=== PATIENT | female | born 1995 | race Caucasian/White ===

== ENCOUNTER 2022-03-26 13:18 | Emergency (ER) | payer OTHER, SELFPAY ==
[2022-03-26 13:19] VITALS: BP 124/78; PULSE 63; RESP 14; TEMP 36.4; O2SAT 100; BMI 24.1
--- NOTE | 2022-03-26 14:13 | EKG12_ITS ---
Test Reason : SYNCOPE Blood Pressure : / mmHG Vent. Rate : 059 BPM Atrial Rate : 059 BPM P-R Int : 158 ms QRS Dur : 084 ms QT Int : 408 ms P-R-T Axes : 036 038 037 degrees QTc Int : 403 ms Sinus bradycardia Otherwise normal ECG Confirmed by LEIF MARTÍNEZ, HANNA ([id number]), assignment desk editor NERY TILLMAN ([id number]) on 03/27/2022 11:21:03 A M Referred By: TEMI Confirmed By:FARHANA YADAV MD
--- NOTE | 2022-03-26 14:32 | EDS_ITS ---
HPI History of Present Illness Chief Complaint: Syncope Informant: patient Narrative Narrative: 14-week gestation. Presents by EMS from home for syncopal episode occurring while at [employer]. Patient did not eat much today states she is really hungry try to pay for food she got sweaty lightheaded, next thing she knows she was on the ground. She has a mild headache. No neck or back pain. Denies abdominal pain. Denies nausea or vomiting. Denies urinary symptoms. No prodromal chest pains or shortness of breath. No previous similar incidents in the past. No past medical history. Denies alcohol, tobacco, illicit drug use. Currently only on vitamins. Blood glucose 93 with per EMS. Prior similar symptoms: No PFSH PFSH Medical History no medical history Allergy/AdvReac Type Severity Reaction Status Date / Time No Known Allergies Allergy Verified 03/26/22 13:19 Social History Smoking Status: Never smoker ROS ROS ED Constitutional Constitutional ED: Denies chills, fever(s) or sweats Eyes Eyes: Denies change in vision ENT ENT ED: Denies dysphagia or sore throat Cardiovascular Cardiovascular: Denies chest pain, leg edema, palpitations or racing heartbeat Respiratory/Chest Respiratory/Chest: Denies cough, dyspnea or dyspnea on exertion Gastrointestinal Gastrointestinal: Denies abdominal pain, diarrhea, nausea or vomiting Genitourinary Genitourinary ED: Denies dysuria, hematuria or urinary frequency Musculoskeletal Musculoskeletal: Denies back pain, extremity pain or neck pain Integumentary Denies rash or wounds Neurologic Neurologic: Reports headache(s); Denies paresthesias or weakness EXAM Physical Exam Const Vital Signs: 03/26/22 13:19 03/26/22 13:22 03/26/22 15:32 Temperature 97.5 F L Temperature Source Temporal Pulse Rate 63 Respiratory Rate 14 Respiratory Effort Normal Non-Labored Blood Pressure 124/78 H 98/61 Blood Pressure Mean 93 73 Pulse Ox 100 Oxygen Delivery Method Room Air 03/26/22 16:06 Temperature Temperature Source Pulse Rate 78 Respiratory Rate 16 Respiratory Effort Blood Pressure 103/71 Blood Pressure Mean Pulse Ox 98 Oxygen Delivery Method Positive well nourished and well developed General Appearance ED: well developed and NAD HEENT Reports moist mucous membranes normocephalic and atraumatic Eyes PERRL, EOMs intact bilaterally and conjunctivae normal General Eye ED: Yes normal appearance of both eyes Neck no lymphadenopathy and supple General: Negative for tenderness Chest Wall Chest: Negative for tenderness Resp normal respiratory effort and normal air movement Effort and Inspection: symmetric chest movement; Negative for respiratory distress Cardio regular rate, regular rhythm and no murmurs Peripheral Pulses: pulses 2+ throughout GI normal to inspection, nondistended, normoactive bowel sounds and non-tender Palpation: Negative for guarding or rebound tenderness present Back/Spine no CVA tenderness and no thoracic nor lumbar tenderness Extremity normal to inspection General Extremety ED: Negative for edema or tenderness General Extremity: Negative for edema Neuro oriented x3, CN's II-XII intact bilaterally and no sensory deficits noted Sensorium / Orientation: awake and alert Skin no rashes or lesions noted and no wounds MDM MDM MDM Narrative Medical decision making narrative: Patient headache with no focal deficits. Nexus CT head criteria negative. History more concerning for vasovagal episode from not eating. She is currently back to baseline and is hungry. She has no abdominal cramping with her . We will check EKG basic labs urine along with heart tones. Will reevaluate. 1500: Patient EKG is normal basic labs were normal. Nurses unable to get the heart tones I placed a bedside ultrasound heart tones 162. She was given apple juice and fluids for oral intake. Awaiting a urine at this time. Urine returned negative. Patient ambulating with no return of symptoms. Patient will monitor for any abdominal cramping vaginal bleeding. She is discharged with follow-up with her OB. Lab Data Attestation: I reviewed the patient's lab results. Labs: Laboratory Results - last 24 hr 03/26/22 03/26/22 03/26/22 14:24 14:24 15:25 WBC 7.8 RBC 3.98 L Hgb 12.1 Hct 36.5 L MCV 91.7 MCH 30.4 MCHC 33.2 RDW Std Deviation 43.6 RDW Coeff of Jennifer 13.1 Plt Count 201 MPV 10.5 Immature Gran % (Auto) 0.500 Neut % (Auto) 82.4 H Lymph % (Auto) 11.8 L [place] % (Auto) 4.6 Eos % (Auto) 0.4 Baso % (Auto) 0.3 Absolute Neuts (auto) 6.4 Absolute Lymphs (auto) 0.92 Nucleated RBC % 0 Sodium 136 Potassium 3.7 Chloride 104 Carbon Dioxide 26.0 Anion Gap 6 BUN 7 Creatinine 0.56 Estim Creat Clear Calc 144.15 Est GFR (MDRD) Af Amer 165 Est GFR (MDRD) Non-Af 137 BUN/Creatinine Ratio 12.5 Glucose 95 Calcium 9.2 Urine Color Yellow Urine Clarity Clear Urine pH 6.5 Ur Specific [place] 1.010 Urine Protein Negative Urine Glucose (UA) Normal Urine Ketones Negative Urine Occult Blood Negative Urine Nitrite Negative Urine Bilirubin Negative Urine Urobilinogen Normal Ur Leukocyte Esterase Negative Urine RBC 0 SEEN Urine WBC 0-5 SEEN Ur Squamous Epith Cells 5-10 SEEN Urine Bacteria 3+ Urine Mucus 0 SEEN EKG Initial EKG: Attestation: I personally reviewed and interpreted this EKG as follows: Comments: Sinus rate of 59, no ST or T wave changes QTC 403. Discharge Plan Triage Chief Complaint: Syncope ED Provider: Gio Ugarte Dx/Rx/DC Orders Clinical Impression: Syncope, vasovagal, Second trimester Instructions: Preg 2nd Trimester, ED Fainting, Vagal Reaction Primary Care Provider: Care Physician,No Primary Referrals: Care Physician,No Primary [Primary Care Provider] - Activity Restrictions/Additional Instructions: Work-up negative. Follow-up with your OB doctor. Return if any worsening symptoms. Disposition Disposition: Home, Self Care Discharge Date/Time: 03/26/22 16:07
[2022-03-26 14:36] LABS: Absolute Lymphocyte Count 0.92 X10^3/uL (0.83-4.51); Absolute Neutrophil Count 6.4 X10^3/uL (2.0-7.7); Basophil# 0.02 X10^3/uL; Basophil% 0.3 % (0-1); Eosinophil# 0.03 X10^3/uL; Eosinophils% 0.4 % (0-5); Hematocrit 36.5 % (37-47); Hemoglobin 12.1 g/dL (12.0-15.0); Lymphocyte # 0.92 X10^3/ul (0.83-4.51); Lymphocyte % 11.8 % (19-41); Mean Corp Hgb Conc 33.2 g/dL (32-36); Mean Corpuscular Hgb 30.4 pg (27.0-32.0); Mean Corpuscular Volume 91.7 fL (81-99); Mean Platelet Vol. 10.5 fl (6.2-12.0); Monocyte# 0.36 X10^3/uL; Monocyte% 4.6 % (0-10); NRBC Flagged by Analyzer 0 % (0-5); Neutrophil # 6.42 X10^3/uL (2.7-7.7); Neutrophil % 82.4 % (47-70); Platelet Count 201 K/mm3 (150-450); RBC Distribution Width CV 13.1 % (11.6-14.6); RBC Distribution Width SD 43.6 fl (35.1-43.9); Red Blood Count 3.98 M/mm3 (4.2-5.4); White Blood Count 7.8 K/mm3 (4.4-11.0)
[2022-03-26 14:53] LABS: Anion Gap 6 (5-15); BUN 7 mg/dL (7-18); BUN/Creat Ratio 12.5 RATIO (10-20); Calcium,Total 9.2 mg/dL (8.5-10.1); Chloride 104 mmol/L (98-107); Creatinine, Serum 0.56 mg/dL (0.55-1.02); EST Glomerular Filtration Rate 137 mL/min (>60); Est Glom Filt Rate - Afr Amer 165 mL/min (>60); Estimated Creatinine Clearance 144.15 ml/min; Glucose 95 mg/dL (74-106); Potassium 3.7 mmol/L (3.5-5.1); Sodium Level 136 mmol/L (136-145)
[2022-03-26 15:30] LABS: Mucous, Urine 0 SEEN /hpf (<or=2+); Red Blood Cells-Urine 0 SEEN /hpf (0-5)
[2022-03-26 15:32] VITALS: BP 98/61
[2022-03-26 15:33] LABS: Color, Urine Yellow (Yellow); Glucose, Dipstick Normal (Normal); Ketone-Dipstick Negative (Negative); Leukocyte Esterase-Dipstick Negative /ul (Negative); Nitrite-Dipstick Negative (Negative); Occult Blood-Urine Negative /ul (Negative); Protein-Dipstick Negative (Negative); Urine Bilirubin Dipstick Negative (Negative); Urine Clarity Clear (Clear); Urine Urobilinogen Normal (Normal); Urine pH 6.5 (5.0 - 8.0)
[2022-03-26 15:42] LABS: Bacteria 3+ /hpf (None Seen); Squamous Epithelial Cells - UA 5-10 SEEN /hpf (5-10); White Blood Cells 0-5 SEEN /hpf (0-5)
--- NOTE | 2022-03-26 16:02 | CM.ED ---
Social Work Note Reason for Referral: No PCP SW reviewed chart, no PCP listed for pt. SW in to speak with pt. Pt states her PCP is not local. SW provided pt with PCP list. Marybel Pelayo MSW, [employer]
[2022-03-26 16:06] VITALS: BP 103/71; PULSE 78; RESP 16; O2SAT 98
== END 2022-03-26 16:07 | disposition home or self-care (01) ==
PROVIDERS: Emergency Provider Emergency Medicine; Visit Provider Emergency Medicine
DX: O99.891 Other specified diseases and conditions complicating pregnancy (principal); R55 Syncope and collapse; Z3A.14 14 weeks gestation of pregnancy
CPT/HCPCS: 80048; 81001; 85025; 93005; 99285; A4216